=== PATIENT | male | born 1960 | race Caucasian/White ===

== ENCOUNTER → 2016-08-13 | Outpatient (CLI) | payer OTHER ==
[~2016-08-13] MED LIST: BIOF500T PO; CIPR-255 PO; FLM4 PO; KRIL1CAP11 PO; OXYC-57 PO; PSYL55.43 PO; REDCAP2 PO; VITA100C4 PO; VTMD1000 PO
[2016-08-13 12:13] LABS: BASO % 0.3 %; BASO ABS # 0.02 K/uL (0-0.2); COMPLETE YES; EOS % 1.9 %; IG% 0.2 %; LYMPH % 38.5 %; LYMPH ABS # 2.43 K/uL (1.2-3.4); MEAN CELL VOLUME 91.1 fL (80-100); MEAN CORPUSCULAR HEMOGLOBIN 30.7 pg (25-34); MEAN CORPUSCULAR HGB CONC 33.7 g/dl (32-36); MEAN PLATELET VOLUME 9.7 fL (7.4-10.4); MONO % 7.3 %; NEUT % 51.8 %; PLATELET COUNT 245 K/uL (130-400); WHITE BLOOD COUNT 6.31 K/uL (4.8-10.8)
--- NOTE | 2016-08-13 12:37 | DIAGNOSTIC IMAGING REPORT ---
CHEST 2 VIEWS ROUTINE HISTORY: Pre-op. Hydrocele. COMPARISON: Chest 10/17/2014. FINDINGS: The lungs are clear. Cardiac silhouette is normal in size. No pleural effusions. No pneumothorax. IMPRESSION: No acute process. Electronically signed by: Edwin Parra M.D. 08/13/2016 12:36 PM Dictated Date/Time: 08/13/2016 12:35 PM
[2016-08-13 12:46] LABS: BLOOD UREA NITROGEN 18 mg/dl (7-18); BUN/CREATININE RATIO 18.7 (10-20); CALCIUM 8.7 mg/dl (8.5-10.1); CARBON DIOXIDE 26 mmol/L (21-32); CHLORIDE 105 mmol/L (98-107); CREATININE 0.97 mg/dl (0.60-1.40); GLUCOSE 109 mg/dl (70-99); POTASSIUM 4.3 mmol/L (3.5-5.1); SODIUM 140 mmol/L (136-145)
== END | disposition home or self-care (01) ==
LOC: C.CPL 11:30
PROVIDERS: ATTEND Urology
DX: N43.3 Hydrocele, unspecified (principal); Z01.810 Encounter for preprocedural cardiovascular examination

== ENCOUNTER 2016-08-28 04:58 | Day surgery (SDC) | payer OTHER ==
[2016-08-18 13:08] VITALS: BMI 31.0
[~2016-08-28] VITALS: Ht 175.3 cm; Wt 95.5 kg
[~2016-08-28 04:58] MED LIST changes: -CIPR-255 PO; -FLM4 PO; -OXYC-57 PO
[2016-08-28 05:31] VITALS: BP 133/73; PULSE 54; TEMP 36.5; Ht 175.3 cm; Wt 95.5 kg
[2016-08-28] MEDS ORDERED: LACTATED RINGER'S 1000ML 1,000 ML IV SCH (06:00)
[2016-08-28] MEDS ORDERED: CEFAZOLIN 2000 MG/60 ML D5W IV SCH (06:00)
[2016-08-28] MEDS ORDERED: FENTANYL CITRATE INJ 50 MCG/1 ML 2 ML VIAL ONE ×2 (06:33→07:59)
[2016-08-28] MEDS ORDERED: DEXAMETHASONE SOD INJ 4 MG/ML VIAL ONE ×2 (06:33→07:25)
[2016-08-28] MEDS ORDERED: MIDAZOLAM HCL 1 MG/ML 2ML VIAL ONE (06:33)
[2016-08-28] MEDS ORDERED: LIDOCAINE HCL 2% 2 ML VIAL (20MG/ML) ONE (06:33)
[2016-08-28] MEDS ORDERED: PROPOFOL IV EMULSION 10 MG/ML 20 ML VIAL IV ONE (06:33)
[2016-08-28] MEDS ORDERED: ONDANSETRON INJ 2 MG/ML 2 ML VIAL ONE (06:33)
[2016-08-28] MEDS ORDERED: ATROPINE SULFATE 0.1 MG/ML 5ML SYR IV PRN (07:00)
[2016-08-28] MEDS ORDERED: ONDANSETRON INJ 2 MG/ML 2 ML VIAL IV PRN (07:00)
[2016-08-28] MEDS ORDERED: EpHEDrine SULFATE INJ 50 MG/ML AMP IV PRN (07:00)
[2016-08-28] MEDS ORDERED: FENTANYL CITRATE INJ 50 MCG/1 ML 2 ML VIAL IV PRN (07:00)
--- NOTE | 2016-08-28 07:02 | History & Physical Bridge Note ---
H&P Re-Evaluation Bridge Note: I have examined the patient, reviewed the History & Physical and in the interval since the performance of the History & Physical I have noted the following changes of clinical significance: No changes noted
[2016-08-28] MEDS ORDERED: BUPIVACAINE 0.5 % 5 MG/1 ML MPF 30ML VIAL ONE (07:16)
[2016-08-28] MEDS ORDERED: SUCCINYLCHOLINE 100MG/5ML SYR IV ONE (07:25)
[2016-08-28] MEDS ORDERED: OXYC-57 PO (08:48)
--- NOTE | 2016-08-28 08:51 | Discharge Instructions ---
Discharge Instructions Visit Reason for Visit: Left Hydrocele Discharge Discharge Diagnosis / Problem: post op l hydrocele Discharge Goals Goal(s): Decrease discomfort Activity Recommendations Activity Limitations: as noted below (ice on scrotum,no driving on narcotics) Anesthesia . Post Anesthesia Instructions: If you have had General Anesthesia or IV Sedation: * Do not drive today. * Resume driving when surgeon permits. * Do not make important decisions or sign legal documents today. * Call surgeon for: 1. Temperature elevations greater than 101 degrees F. 2. Uncontrollable pain. 3. Excessive bleeding. 4. Persistent nausea and vomiting. 5. Medication intolerance (nausea, vomiting or rash). * For nausea and vomiting use only clear liquids such as: tea, soda, bouillon until nausea subsides, then gradually increase diet as tolerated. * If you have any concerns or questions, call your surgeon's office. If physician is unavailable and it is an emergency, call 911 or go to the nearest emergency room. . Diet Recommendations Recommended Home Diet: no limitations Procedures Procedures Performed: Left Hydrocelectomy Pending Studies Studies pending at discharge: no Medical Emergencies . Who to Call and When: Medical Emergencies: If at any time you feel your situation is an emergency, please call 911 immediately. . Non-Emergent Contact Non-Emergency issues call your: Primary Care Provider . . "Provider Documentation" section prepared by Coy Bello. [place] Drug Monitoring Program Drug Monitoring Findings: reviewed no abuse
--- NOTE | 2016-08-28 09:00 | Anesthesiology Progress Note ---
Anesthesia Post Op Note Date & Time Aug 28, 2016 at 09:00 Vital Signs Pain Intensity: 3 Vital Signs Past 12 Hours Date Time Temp Pulse Resp B/P Pulse Ox O2 Delivery O2 Flow Rate FiO2 08/28/16 08:50 48 18 145/86 100 Mask 10 08/28/16 08:40 50 21 121/83 100 Mask 10 08/28/16 08:31 36.2 59 12 130/92 100 Mask 10 08/28/16 05:31 36.5 54 16 133/73 Notes Mental Status: alert / awake / arousable, participated in evaluation Pt Amnestic to Procedure: Yes Nausea / Vomiting: adequately controlled Pain: adequately controlled Airway Patency, RR, SpO2: stable & adequate BP & HR: stable & adequate Hydration State: stable & adequate Anesthetic Complications: no major complications apparent
[2016-08-28 09:15] VITALS: BP 120/77; PULSE 48; TEMP 36.5; O2SAT 93
--- NOTE | 2016-08-28 09:34 | OPERATIVE REPORT ---
DATE OF OPERATION: 08/28/2016 PROCEDURE PERFORMED: Left hydrocelectomy. INDICATIONS: The patient is a 55-year-old male who has a large left hydrocele, also had a small right spermatocele. We discussed doing both at the same time but elected, since the right spermatocele has been stable for years and is much smaller, to do a left hydrocelectomy. DESCRIPTION OF THE PROCEDURE: The patient was brought to the operating room, had Venodyne stockings placed, was given 2 grams of Ancef. He was placed in the supine position, given general anesthesia, and then shaved, prepped and draped in usual sterile fashion. A horizontal incision was made in the mid scrotum on the left side. This incision was extended through the dartos muscles with electrocautery and dissection. The hydrocele sac was exposed, mobilized, and then expressed out of the scrotum. The excess tissue was pushed up and off the scrotal sac with a wet lap. The scrotal sac was opened. Some of the excessive scrotal sac was excised and then the edges were reversed around the posterior aspect of the cord and the edges were sewn together to prevent bleeding. At the end of this, there was no significant bleeding. All areas that were bleeding were either cauterized or tied with 3-0 Vicryl l. The hydrocele had approximately 600 mL of fluid that was removed from the sac. It was actually more than this as some of the fluid was spilled. The testis was then replaced into the scrotal sac. The dartos muscle was grasped with Carri and it was closed with a running 3-0 chromic suture. Then, the skin edges were closed with interrupted vertical mattress sutures of 3-0 chromic. Prior to closing this, a quarter-inch Soraya drain was placed inside the sac in a dependent position and through a separate stab incision. Fluff dressings and a scrotal support were placed. 0.5% Marcaine was used for the top part of the incision to try to control the pain locally. The patient was then transferred to the recovery room in stable condition. Estimated blood loss was 50 mL. Sponge and needle count were correct. I attest to the content of the Intraoperative Record and any orders documented therein. Any exceptions are noted below. SILVIA
[2016-08-28 09:49] VITALS: BP 130/79; PULSE 49; O2SAT 95
[2016-08-28 10:17] VITALS: BP 134/80; PULSE 48; O2SAT 95
[2016-08-28 10:50] VITALS: BP 124/63; PULSE 53; TEMP 36.3; O2SAT 96
== END 2016-08-28 11:00 | disposition home or self-care (01) ==
LOC: C.ACU 04:58
PROVIDERS: ATTEND Urology
DX: N43.3 Hydrocele, unspecified (principal); N40.1 Benign prostatic hyperplasia with lower urinary tract symptoms; N13.8 Other obstructive and reflux uropathy; R31.0 Gross hematuria; R35.1 Nocturia; N13.30 Unspecified hydronephrosis; R39.15 Urgency of urination; K64.9 Unspecified hemorrhoids; Z87.891 Personal history of nicotine dependence; Z83.3 Family history of diabetes mellitus; Z82.49 Family history of ischemic heart disease and other diseases of the circulatory system; Z98.890 Other specified postprocedural states